=== PATIENT | female | born 2000 | race Caucasian/White ===

== ENCOUNTER 2018-04-18 10:15 | Emergency (ER) | payer OTHER, MEDICAID, SELFPAY ==
[2018-04-18 10:28] VITALS: BP 108/70; PULSE 86; RESP 18; TEMP 36.2; O2SAT 100
[2018-04-18 11:11] LABS: Bacteria Urine Few (2-10); Culture Indicated Urine Specimen Cultured; Mucus Urine 1+ (Negative); RBC Urine 10-30/HPF (0-5/HPF); Transitional Epi Cells Urine 0-1/HPF (0-5/HPF); WBC Urine 10-30/HPF (0-5/HPF)
--- NOTE | 2018-04-18 12:12 | ED_ITS ---
HPI - Female Genitourinary <Luma Guerra PA-C - Last Filed: 04/18/18 16:02> General Chief complaint: Urogenital-Female Stated complaint: states pain rt side back, tightness when urinating Time Seen by Provider: 04/18/18 12:07 Source: patient Mode of arrival: ambulatory Limitations: no limitations History of Present Illness HPI Narrative: This generally healthy 18-year-old female comes in due to urinary symptoms. She states that she has had a warm, tight sensation with urination as well as urinary urgency and frequency for about 5 days. She has had some minimal nausea today. She states that she has had some tightness in her right side the in her back that is better today than last night. She denies any new vaginal discharge or STD concerns (states she was recently tested). She denies any vomiting or fever or any other new complaints on systems review today. Related Data Previous Rx's Medication Instructions Recorded sulfamethoxazole-trimethoprim 1 tab PO Q12H #10 tab 04/18/18 [Bactrim DS] Allergies Allergy/AdvReac Type Severity Reaction Status Date / Time No Known Drug Allergies Allergy Verified 04/18/18 10:27 Review of Systems <Luma Guerra PA-C - Last Filed: 04/18/18 16:02> Review of Systems ROS Unobtainable: All systems reviewed & are unremarkable except as noted in HPI and below PFSH <Luma Guerra PA-C - Last Filed: 04/18/18 16:02> Medical History ADHD (Chronic) No pertinent family history (Chronic) Surgical History No pertinent past surgical history (Chronic) Social History Smoking Status: Current every day smoker additional social history: +illicit Social History Smoking Status: Current every day smoker additional social history: +illicit Exam <Luma Guerra PA-C - Last Filed: 04/18/18 16:02> Narrative Exam Narrative: GENERAL APPEARANCE: Patient sitting comfortably, in no distress. LUNGS: Clear to auscultation bilaterally. HEART: Rate and rhythm regular without murmur, normal S1 and S2, no S3 or S4. ABDOMEN: Soft, NT, ND, +BS x 4 quadrants, no CVAT. MUSCULOSKELETAL: Mild tenderness in the right mid lumbar paraspinal musculature, no spinal tenderness, normal sit to stand and gait Initial Vital Signs Initial Vital Signs: Vital Signs Temperature 97.2 F L 04/18/18 10:28 Pulse Rate 86 04/18/18 10:28 Respiratory Rate 18 04/18/18 10:28 Blood Pressure 108/70 04/18/18 10:28 Pulse Oximetry 100 04/18/18 10:28 <DO Margo Betancur Last Filed: 04/18/18 18:29> Initial Vital Signs Initial Vital Signs: Vital Signs Temperature 97.2 F L 04/18/18 10:28 Pulse Rate 86 04/18/18 10:28 Respiratory Rate 18 04/18/18 10:28 Blood Pressure 108/70 04/18/18 10:28 Pulse Oximetry 100 04/18/18 10:28 Course <Luma Guerra PA-C - Last Filed: 04/18/18 16:02> Orders Ordered: ED Orders 04/18/18 10:45 Urine Culture Stat Urine Microscopic Stat Vital Signs - 8 hr 04/18/18 12:26 Pulse Rate 79 Respiratory Rate 16 Blood Pressure [Left Arm] 110/74 Pulse Oximetry 99 <DO Margo Betancur Last Filed: 04/18/18 18:29> Orders Ordered: ED Orders 04/18/18 10:45 Urine Culture Stat Urine Microscopic Stat Vital Signs - 8 hr 04/18/18 12:26 Pulse Rate 79 Respiratory Rate 16 Blood Pressure [Left Arm] 110/74 Pulse Oximetry 99 MDM - Female Genitourinary <SUKI Robert Last Filed: 04/18/18 16:02> Lab Data Lab Results 04/18/18 Range/Units 10:45 Urine RBC 10-30/hpf H (0-5/HPF) Urine WBC 10-30/hpf H (0-5/HPF) Ur Transition Epith Cell 0-1/hpf (0-5/HPF) Urine Bacteria Few (2-10) H (None) Urine Mucus 1+ H (Negative) Ur Culture Indicated? Specimen cultured Point of Care Testing Test Results Negative Urine Dip Bedside Urine Glucose Negative Bedside Urine Bilirubin - Negative Bedside Urine Ketone + 15 Urine Specific [place] 1.020 Bedside Urine Occult Blood +++ Bedside Urine pH 6.0 Bedside Urine Protein +++ 300 Bedside Urine Urobilinogen +/- 1mg Bedside Urine Nitrite + Positive Bedside Urine Leukocytes ++ 125 Esterase <Emeli Bustamante DO - Last Filed: 04/18/18 18:29> Lab Data Lab Results 04/18/18 Range/Units 10:45 Urine RBC 10-30/hpf H (0-5/HPF) Urine WBC 10-30/hpf H (0-5/HPF) Ur Transition Epith Cell 0-1/hpf (0-5/HPF) Urine Bacteria Few (2-10) H (None) Urine Mucus 1+ H (Negative) Ur Culture Indicated? Specimen cultured Point of Care Testing Test Results Negative Urine Dip Bedside Urine Glucose Negative Bedside Urine Bilirubin - Negative Bedside Urine Ketone + 15 Urine Specific [place] 1.020 Bedside Urine Occult Blood +++ Bedside Urine pH 6.0 Bedside Urine Protein +++ 300 Bedside Urine Urobilinogen +/- 1mg Bedside Urine Nitrite + Positive Bedside Urine Leukocytes ++ 125 Esterase Discharge Plan Departure Patient Disposition: Home Clinical Impression: UTI (urinary tract infection) Qualifiers: Urinary tract infection type: acute cystitis Hematuria presence: without hematuria Qualified Code(s): N30.00 - Acute cystitis without hematuria Discharge Date/Time: 04/18/18 12:28 Interventions: ED Discharge Assessment Last Done: 04/18/18 13:14 Instructions: DI for Urinary Tract Infection (UTI) Activity Restrictions/Additional Instructions: Please picking machine operator helper the antibiotic and take the 1st 2 doses today. If you wish, you can use [id number] azo or similar for urinary pain for a few days if needed. Please return or see your PCP as we talked about if you have acutely worsening symptoms, or new symptoms such as fever or vomiting while cultures are pending Prescriptions: New sulfamethoxazole-trimethoprim [Bactrim DS] 800-160 mg tablet 1 tab PO Q12H Qty: 10 RF: 0 Referrals: Rey Peralta MD [Physician] - <Emeli Bustamante DO - Last Filed: 04/18/18 18:29> Cosign ED Attending Anselmoature Attestation: I was immediately available in the department for consultation. This documentation has been reviewed and I agree with assessment and plan. Supervised by Emeli Bustamante DO
[2018-04-18 12:26] VITALS: BP 110/74; PULSE 79; RESP 16; O2SAT 99
== END 2018-04-18 12:28 | disposition home or self-care (01) ==
PROVIDERS: Emergency Medicine; Emergency Provider Internal Medicine
DX: N30.00 Acute cystitis without hematuria (principal)
CPT/HCPCS: 81003; 81015; 81025; 87077; 87086; 87147; 99283

== ENCOUNTER → 2020-08-25 12:07 | Outpatient (CLI) | payer OTHER, MEDICAID, SELFPAY ==
[2020-08-25 20:45] LABS: COVID19 - ORCAS (NP or Nasal) Negative (Negative)
== END ==
PROVIDERS: PCP Family Medicine; Visit Provider Family Medicine
DX: Z20.822 Contact with and (suspected) exposure to COVID-19 (principal)
CPT/HCPCS: U0003

== ENCOUNTER 2022-02-11 23:11 | Emergency (ER) | payer OTHER, MEDICAID, SELFPAY ==
[2022-02-11 23:28] VITALS: BP 135/76; PULSE 82; RESP 20; TEMP 36.7; O2SAT 99; BMI 32.2
[2022-02-12 00:05] LABS: Add Manual Diff / Slide Review NO; Basophils Absolute Auto 100 /uL (0-100); Basophils Percent Auto 0.7 % (0-2); Eosinophils Absolute Auto 100 /uL (0-450); Eosinophils Percent Auto 0.8 % (2-4); Hematocrit 41.5 % (36-46); Hemoglobin 14.1 g/dL (12.0-16.0); Lymphocytes Absolute Auto 2700 /uL (1100-4500); Lymphocytes Percent Auto 33.2 % (25-40); Mean Corpuscular HGB Conc 33.9 % (30-36); Mean Corpuscular Hemoglobin 29.3 PG (26-34); Mean Corpuscular Volume 86.4 fL (80-100); Monocytes Absolute Auto 500 /uL (0-900); Monocytes Percent Auto 6.1 % (3-14); Neutrophils Absolute Auto 4800 /uL (1500-7000); Neutrophils Percent Auto 59.2 % (50-75); Platelet Count 315 X10^3/uL (150-400); Red Blood Cell Count 4.81 X10^6/uL (4.0-5.2); Red Cell Distribution Width 12.3 % (11.6-14.8); White Blood Cell Count 8.1 X10^3/uL (4.5-11.0)
[2022-02-12 00:06] LABS: Alanine Aminotransferase 55 IU/L (<35); Albumin 4.3 g/dL (3.5-5.0); Albumin Globulin Ratio 1.2 (1.0-2.8); Alkaline Phosphatase 52 U/L (38-126); Aspartate Aminotransferase 33 IU/L (14-36); BUN Creatinine Ratio 16.1 (6-22); Bilirubin Total 0.3 mg/dL (0.2-1.3); Blood Urea Nitrogen 9 mg/dL (7-17); Calcium 8.9 mg/dL (8.4-10.2); Carbon Dioxide 27 mmol/L (22-32); Chloride 103 mmol/L (98-107); Estimated Glomerular Filt Rate > 60 mL/min (>60); Globulin 3.6 g/dL (1.7-4.1); Glucose 94 mg/dL (70-100); HEMOLYSIS < 15 (0-50); Lipase 147 U/L (23-300); Potassium 3.7 mmol/L (3.4-5.1); Sodium 139 mmol/L (137-145); Total Protein 7.9 g/dL (6.3-8.2)
[2022-02-12 02:42] VITALS: PULSE 75; O2SAT 100
[2022-02-12 02:43] VITALS: BP 107/66; PULSE 74; O2SAT 99
--- NOTE | 2022-02-12 02:45 | ED_ITS ---
HPI - Abdominal Pain General Chief Complaint: Abdominal Pain Stated Complaint: abd pain Time Seen by Provider: 02/12/22 02:45 Source: patient Mode of arrival: Ambulatory History of Present Illness HPI narrative: 21-year-old female nonsmoker with history of ADHD presents with multiple complaints for the past week or so. She is a poor historian but states that she started having symptoms including some nasal congestion, occasional sore throat and cough around Thanksgiving. Additionally she states she thinks she started having some decreased appetite generalized, perhaps worse pain in her right lower quadrant and multiple episodes of loose stools over that time frame. Sometime in the following days she saw her doctor who diagnosed her with bacterial bronchitis and put her on a Z-Иван which she has completed. She presents today because of persistent lower abdominal pain which now overlies her pubic region as well. She states that laughing or coughing seems to worsen this pain and even urinating. She denies hematuria or urgency. She denies vaginal bleeding or discharge and states that her last menstrual cycles a few weeks ago. She states she is never had pain like this before. She thinks she had a fever earlier today but is unsure. She denies any change in her appetite. Related Data Previous Rx's Medication Instructions Recorded dextroamphetamine-amphetamine 10 10 mg PO BID #60 tabs 08/17/20 mg tablet dextroamphetamine-amphetamine 10 10 mg PO BID #60 tabs 08/17/20 mg tablet dextroamphetamine-amphetamine 10 10 mg PO BID #60 tabs 08/17/20 mg tablet ketorolac 10 mg tablet 10 mg PO Q6H PRN pain #14 tabs 02/12/22 Allergies Allergy/AdvReac Type Severity Reaction Status Date / Time No Known Drug Allergies Allergy Verified 02/11/22 23:36 Review of Systems Review of Systems Narrative: GENERAL: See HPI HEENT: See HPI RESPIRATORY: See HPI CARDIOVASCULAR: Denies chest pain, palpitations, orthopnea, edema, GASTROINTESTINAL: See HPI : See HPI MUSCULOSKELETAL: denies weakness, joint pain, or bony pain SKIN: Denies rash, skin lesions, or other NEUROLOGIC: Denies weakness, headache, numbness, change in speech, confusion, seizures, incoordination. PSYCHIATRIC: No concerning psychosocial issues. 12 point review of systems is negative except for those stated above Patient History Medical History ADHD No pertinent family history Surgical History No pertinent past surgical history Social History Smoking Status: Current every day smoker additional social history: +illicit Smoking Status: Current every day smoker alcohol intake frequency: 0-2 drinks per day Substance Use Type: former substance user Exam Narrative Exam Narrative: GENERAL: [21] year old patient appears stated age. Well-developed patient, in mild distress. HEAD: Atraumatic. Normocephalic. EYES: Pupils equal round and reactive. Extraocular motions intact. No scleral icterus. No injection or drainage. ENT: Nose without bleeding, purulent drainage. Throat without erythema, tonsillar hypertrophy or exudate. Airway patent. NECK: Trachea midline. Non tender CARDIOVASCULAR: Regular rate and rhythm without murmurs, gallops, or rubs. RESPIRATORY: Clear to auscultation. Breath sounds equal bilaterally. No wheezes, rales, or rhonchi. GASTROINTESTINAL: Abdomen soft, tender across her lower abdomen without rebound or guarding, nondistended. Bowel sounds present in all 4 quadrants EXTREMITIES: No edema or joint tenderness. BACK: Nontender without deformity or crepitance. No flank tenderness. NEURO: AOx3. SKIN: No rash or erythema of visible areas Initial Vital Signs Initial Vital Signs: Vital Signs Temperature 98.1 F 02/11/22 23:28 Pulse Rate 82 02/11/22 23:28 Respiratory Rate 20 02/11/22 23:28 Blood Pressure 135/76 02/11/22 23:28 Pulse Oximetry 99 02/11/22 23:28 Oxygen Delivery Method 02/11/22 23:28 Course Orders Ordered: Discontinued Medications Sodium Chloride (Normal Saline 0.9%) 1,000 mls @ 1,000 mls/hr IV BOLUS ONE Stop: 02/12/22 03:55 Last Infusion: 02/12/22 05:36 Dose: 0 mls/hr Documented By: Admin: 02/12/22 03:13 Dose: 1,000 mls/hr Documented By: BING Ondansetron HCl (Ondansetron 4 Mg Odt) 4 mg PO NOW PRN PRN Reason: Nausea And Vomiting Ondansetron HCl (Ondansetron 4 Mg/2 Ml Inj) 4 mg IV NOW PRN PRN Reason: Nausea And Vomiting Vital Signs Vital signs: Vital Signs - 8 hr 02/11/22 23:28 02/12/22 02:42 02/12/22 02:43 Temperature 98.1 F Pulse Rate 82 75 Respiratory Rate 20 Blood Pressure 135/76 107/66 Pulse Oximetry 99 100 Oxygen Delivery Method Room Air 02/12/22 02:43 Temperature Pulse Rate 74 Respiratory Rate Blood Pressure Pulse Oximetry 99 Oxygen Delivery Method MDM - Abdominal Pain Lab Data 02/11/22 23:45 02/11/22 23:45 Labs: Lab Results 02/11/22 02/11/22 02/12/22 Range/Units 23:45 23:45 03:00 WBC 8.1 (4.5-11.0) X10^3/uL RBC 4.81 (4.0-5.2) X10^6/uL Hgb 14.1 (12.0-16.0) g/dL Hct 41.5 (36-46) % MCV 86.4 (80-100) fL MCH 29.3 (26-34) PG MCHC 33.9 (30-36) % RDW 12.3 (11.6-14.8) % Plt Count 315 (150-400) X10^3/uL Neut % (Auto) 59.2 (50-75) % Lymph % (Auto) 33.2 (25-40) % [place] % (Auto) 6.1 (3-14) % Eos % (Auto) 0.8 L (2-4) % Baso % (Auto) 0.7 (0-2) % Neut # (Auto) 4800 (7354-6137) /uL Lymph # (Auto) 2700 (8121-4211) /uL [place] # (Auto) 500 (0-900) /uL Eos # (Auto) 100 (0-450) /uL Baso # (Auto) 100 (0-100) /uL Sodium 139 (137-145) mmol/L Potassium 3.7 (3.4-5.1) mmol/L Chloride 103 (98-107) mmol/L Carbon Dioxide 27 (22-32) mmol/L BUN 9 (7-17) mg/dL Creatinine 0.56 (0.52-1.04) mg/dL Estimated GFR > 60 (>60) mL/min BUN/Creatinine Ratio 16.1 (6-22) Glucose 94 (70-100) mg/dL Calcium 8.9 (8.4-10.2) mg/dL Total Bilirubin 0.3 (0.2-1.3) mg/dL AST 33 (14-36) IU/L ALT 55 H (<35) IU/L Alkaline Phosphatase 52 (38-126) U/L Total Protein 7.9 (6.3-8.2) g/dL Albumin 4.3 (3.5-5.0) g/dL Globulin 3.6 (1.7-4.1) g/dL Albumin/Globulin Ratio 1.2 (1.0-2.8) Lipase 147 (23-300) U/L SARS-CoV-2 (PCR) Negative (Negative) Influenza A (RT-PCR) Flu a negative (NEGATIVE) Influenza B (RT-PCR) Flu b negative (NEGATIVE) RSV (PCR) Negative (Negative) Point of care testing: Point of Care Testing Test Results Negative Urine Dip Bedside Urine Glucose Negative Bedside Urine Bilirubin - Negative Bedside Urine Ketone - Negative Urine Specific [place] 1.005 Bedside Urine Occult Blood - Negative Bedside Urine pH 6.0 Bedside Urine Protein - Negative Bedside Urine Urobilinogen - Negative Bedside Urine Nitrite - Negative Bedside Urine Leukocytes - Negative Esterase Imaging Data CT scan - abdomen/pelvis: Radiologist's Impression: No evidence of colitis, diverticulitis, bowel obstruction, obstructive uropathy or acute appendicitis. Right ovarian cyst measuring up to 4.1 cm. Recommend pelvic ultrasound for further evaluation US - QA ENGINEER: Radiologist's Impression: [address] [address] Ultrasound Report Signed Patient: Sandhya Ramsay MR#: [id number] : 2000 Acct:[id number] Age/Sex: 21 / F Date of Service: 02/12/22 Loc: ED Accession Number: [id number] ?? Procedure: US pelvic complete Ordering Provider: Parviz Adame D.O. PROCEDURE:? US PELVIC COMPLETE ? INDICATIONS:? FOLLOW UP CT - PELVIC CYST ? TECHNIQUE:? Real-time scanning was performed of the pelvic organs, with image documentation.? Additional endovaginal scanning was necessary due to incomplete visualization of the adnexal and endometrial structures by transabdominal scanning.? ? COMPARISON:? [facility], CT, CT ABDOMEN PELVIS W CON, 02/12/2022, 3:07. ? FINDINGS:? ?? Uterus:? Uterus is anteverted and normal in size at 7.8 x 4.2 x 3.5 cm. The myometrium is homogeneous. ? The endometrium measures 5.9 mm combined thickness.? Question of a 2.5 x 1.3 x 2.2 cm intramural fibroid in the posterior uterine wall. ? Ovaries:? The right ovary measures 5.6 x 4.3 x 4.0 cm, with a calculated ovarian volume of 50.1 cc.? There is a 4.2 x 3.8 x 2.1 cm complex cyst in right ovary.? The left ovary measures 3.0 x 2.0 x 1.2 cm, with a calculated ovarian volume of 3.7 cc. The ovaries have a normal sonographic appearance. Less than 12 follicles can be seen in each ovary.? No adnexal masses are seen.? On Doppler ultrasound, there are both arterial and venous flow to ovaries. ? Other:? Moderate amount of pelvic fluid in the right adnexa and cul-de-sac. ? ? IMPRESSION:? ? 1. Right ovary is enlarged.? There is a 4.2 x 3.8 x 2.1 cm complex cyst in the right ovary, most likely a hemorrhagic cyst.? Recommend a short-term follow-up ultrasound in 6 weeks. ? 2. Moderate amount of free fluid in pelvis. ? 3. Question of a fibroid in the posterior uterine wall. ? ? ? No significant discrepancy with the rope twisting machine operator radiology preliminary report. ? We strive to produce accurate, complete, and clear reports of imaging services. To assist us in improving patient care, this report was composed using standard report templates and voice recognition software. Therefore, it may contain abnormal punctuation, insertions and/or omissions. Occasional wrong-word or sound-alike substitutions may occur. Though we review the report and make efforts to correct it, we do recommend that the report be read carefully in proper context to recognize any text inaccuracies. ? ? Dictated by: Sofy Richter M.D. on 02/12/2022 at 8:16 ? ? Approved by: Sofy Richter M.D. on 02/12/2022 at 8:22 ? MDM Narrative Medical decision making narrative: 21-year-old female nonsmoker with history of ADHD presents with multiple complaints for the past week or so Multiple etiologies for patient's symptoms considered including: [Appendicitis versus bowel obstruction versus ovarian cyst versus kidney stone versus other] Patient's symptoms improved over duration of stay with above-stated therapies. Pain is well controlled and she is tolerating orals Findings and discharge diagnosis discussed with patient/family followed by verbalization of understanding. She understands importance of close follow-up and has been given contact information for our gynecology group Return precautions discussed with patient/family whom verbalize understanding. Discharge Plan Departure Patient Disposition: Home Clinical Impression: Hemorrhagic cyst of right ovary Instructions: DI for Ovarian Cyst Activity Restrictions/Additional Instructions: *You have been diagnosed with [right ovarian cyst ] *What to do: *Please continue to take your regular medications as directed. [x ] New medication prescriptions sent to your pharmacy: [[facility] ] [ ] New medication written as a paper prescription [ ] No new medications given *Please follow up with your primary care provider in 2-3 days, call for an appointment. Let them know you were seen in the Emergency Department and that we ask that you be seen in follow up. We will electronically transmit a record of today's note if your PCP is in our system *If you do not have a primary care provider please contact the [facility] Resource line at [phone]. They will ask some questions about your medical history and help get you set up with a doctor in the community. *Return to Emergency Department if you should have any new, worsening or concerning symptoms, such as [fever greater than 101 F, shaking chills, worsening pain, persistent vomiting or other bothersome symptoms] Prescriptions: New ketorolac 10 mg tablet 10 mg PO Q6H PRN (Reason: pain) Qty: 14 0RF No Action dextroamphetamine-amphetamine 10 mg tablet 10 mg PO BID Qty: 60 0RF Rx Instructions: administer doses at least 4-6 hours apart Tapering. dextroamphetamine-amphetamine 10 mg tablet 10 mg PO BID Qty: 60 0RF Rx Instructions: administer doses at least 4-6 hours apart Tapering. dextroamphetamine-amphetamine 10 mg tablet 10 mg PO BID Qty: 60 0RF Rx Instructions: administer doses at least 4-6 hours apart Tapering. Referrals: Elizabeth Johnson MD [Physician] - Jin Guerrero MD [Primary Care Provider] - Visit Report Forms: Patient Portal/API
--- NOTE | 2022-02-12 02:56 | DI.CT.S_ITS ---
PROCEDURE: CT ABDOMEN PELVIS W CON INDICATIONS: severe lower abdominal pain TECHNIQUE: After the administration of oral and IV contrast, axial sections were acquired from the lung bases to the pubic symphysis. Coronal and sagittal reformats were performed. For radiation dose reduction, the following was used: automated exposure control, adjustment of mA and/or kV according to patient size. COMPARISON: Located [facility], , PELVIC COMPLETE, 02/12/2022, 5:12. FINDINGS: Image quality: Excellent. Lung bases: Left basilar atelectasis. Heart: No significant findings. ABDOMEN: Liver: Normal size. Moderate hepatic steatosis. Gallbladder: Unremarkable. Biliary ducts: Unremarkable. Pancreas: Unremarkable. Spleen: Unremarkable. Adrenal Glands: Unremarkable. Kidneys and Ureters: Unremarkable. Stomach and Bowel: Stomach, small bowel loops, and colon are unremarkable. Moderate amount of stool in colon. Appendix is normal. Peritoneum: No abnormal intraperitoneal fluid. No free air. Ventral Wall: Tiny fat containing umbilical hernia. Abdominal Nodes: No retroperitoneal or mesenteric adenopathy by size criteria. Vessels: Aorta and inferior vena cava are normal in size. PELVIS: Pelvic Organs: There is a 3.7 x 3.7 x 4.2 cm right ovarian cyst. Left ovary is not well seen. Uterus is grossly unremarkable. A dcmbq-bx-mdgmglfe amount of free fluid is present in pelvis. Bladder: Unremarkable. Pelvic Nodes: No enlarged lymph nodes. Miscellaneous: No inguinal hernias are seen. Bones: Unremarkable. IMPRESSION: 1. There is a 3.7 x 3.7 x 4.2 cm right ovarian cyst. There is a btfkn-oc-enflvebl amount of free fluid in the cul-de-sac. Recommend pelvic ultrasound for further evaluation. 2. Normal appendix. No significant discrepancy with the operations supervisor 2nd shift radiology preliminary report. Dictated by: Sofy Richter M.D. on 02/12/2022 at 8:02 Approved by: Sofy Richter M.D. on 02/12/2022 at 8:15
[2022-02-12 03:00] VITALS: BP 101/59; PULSE 73; RESP 18; O2SAT 98
[2022-02-12] MEDS: SODIUM CHLORIDE 0.9% 1,000 ML 1000 ML IV (03:13)
--- NOTE | 2022-02-12 04:19 | DI.US.S_ITS ---
PROCEDURE: US PELVIC COMPLETE INDICATIONS: FOLLOW UP CT - PELVIC CYST TECHNIQUE: Real-time scanning was performed of the pelvic organs, with image documentation. Additional endovaginal scanning was necessary due to incomplete visualization of the adnexal and endometrial structures by transabdominal scanning. COMPARISON: [facility], CT, CT ABDOMEN PELVIS W CON, 02/12/2022, 3:07. FINDINGS: Uterus: Uterus is anteverted and normal in size at 7.8 x 4.2 x 3.5 cm. The myometrium is homogeneous. The endometrium measures 5.9 mm combined thickness. Question of a 2.5 x 1.3 x 2.2 cm intramural fibroid in the posterior uterine wall. Ovaries: The right ovary measures 5.6 x 4.3 x 4.0 cm, with a calculated ovarian volume of 50.1 cc. There is a 4.2 x 3.8 x 2.1 cm complex cyst in right ovary. The left ovary measures 3.0 x 2.0 x 1.2 cm, with a calculated ovarian volume of 3.7 cc. The ovaries have a normal sonographic appearance. Less than 12 follicles can be seen in each ovary. No adnexal masses are seen. On Doppler ultrasound, there are both arterial and venous flow to ovaries. Other: Moderate amount of pelvic fluid in the right adnexa and cul-de-sac. IMPRESSION: 1. Right ovary is enlarged. There is a 4.2 x 3.8 x 2.1 cm complex cyst in the right ovary, most likely a hemorrhagic cyst. Recommend a short-term follow-up ultrasound in 6 weeks. 2. Moderate amount of free fluid in pelvis. 3. Question of a fibroid in the posterior uterine wall. No significant discrepancy with the night shift supervisor radiology preliminary report. We strive to produce accurate, complete, and clear reports of imaging services. To assist us in improving patient care, this report was composed using standard report templates and voice recognition software. Therefore, it may contain abnormal punctuation, insertions and/or omissions. Occasional wrong-word or sound-alike substitutions may occur. Though we review the report and make efforts to correct it, we do recommend that the report be read carefully in proper context to recognize any text inaccuracies. Dictated by: Sofy Richter M.D. on 02/12/2022 at 8:16 Approved by: Sofy Richter M.D. on 02/12/2022 at 8:22
[2022-02-12 04:49] LABS: Influenza A - CEPHEID Flu A NEGATIVE (NEGATIVE); Influenza B - CEPHEID Flu B NEGATIVE (NEGATIVE); Respiratory Syncytial Virus Negative (Negative)
[2022-02-12 04:54] LABS: COVID-19 CEPHEID 4-PLEX PCR Negative (Negative)
[2022-02-12 05:46] VITALS: BP 109/62; PULSE 76; RESP 16; O2SAT 98
== END 2022-02-12 05:47 | disposition home or self-care (01) ==
PROVIDERS: Emergency Provider Emergency Medicine; PCP Family Medicine
DX: N83.201 Unspecified ovarian cyst, right side (principal); J02.9 Acute pharyngitis, unspecified; Z20.822 Contact with and (suspected) exposure to COVID-19
CPT/HCPCS: 0241U; 36415; 74177; 76830; 76856; 80053; 81003; 81025; 83690; 85025; 93975; 96360; 96361; 99284; Q9967